=== PATIENT | female | born 1945 | race Caucasian/White ===

== ENCOUNTER 2017-04-15 12:11 | Day surgery (SDC) | payer BC ==
[2017-04-15] MEDS ORDERED: LIDOCAINE 1% 2 ML INJ ONE (13:13)
[2017-04-15] MEDS ORDERED: PROPOFOL/EMULSION 500 MG/50 ML BOTTLE IV ONE (14:18)
[2017-04-15] MEDS ORDERED: PROPOFOL 200 MG/20 ML VIAL ONE (14:59)
--- NOTE | 2017-04-15 21:03 | GPN ---
[f rep st] PROCEDURE NOTE PREPROCEDURE DIAGNOSIS: Nausea with a personal history of colon polyps. POSTPROCEDURE DIAGNOSES: 1. Gastritis. 2. Colon polyps status post removal. PROCEDURES: 1. EGD with biopsy. 2. Colonoscopy with snare. 3. Colonoscopy with biopsy. MEDICATIONS: Monitored anesthesia care. INDICATIONS: The patient is a 71-year-old female with a history of colon polyps as well as a recent development of nausea without vomiting. She was seen by Dr. Michael in our office who recommended up per endoscopy along with colonoscopy for polyp surveillance. The risks and benefits of the procedur e were discussed with the patient. Consent obtained. Risks include, but not limited to, bleeding, perforation, sedation. The patient is ASA class 2. DESCRIPTION OF PROCEDURE: The upper endoscope was advanced into the esophagus, into the stomach and second portion of the duodenum. The esophagus appears normal. The GE junction is located at 40 cm from the incisors. The Z-line is normal. There was no evidence of varices, esophagitis or Yoder 's. The stomach shows moderate diffuse gastritis associated with erythema, edema and adherent blood , worse in the gastric antrum. Biopsies were taken using cold biopsy forceps to evaluate for Helico bacter pylori. The duodenum and second portion is normal. Biopsies were taken using cold biopsy fo rceps to evaluate for celiac disease. The patient was then repositioned and the adult colonoscope was advanced into the terminal ileum, wh ich appeared normal. The ileocecal valve, the appendiceal orifice, cecum and ascending colon were n ormal. Along the hepatic flexure, there was a 1 cm semipedunculated polyp, which was removed using hot snare polypectomy technique. The transverse colon is normal. The splenic flexure is normal. T he descending colon shows an 8 mm semipedunculated polyp, which was removed using hot snare polypect judah. A few scattered diverticular were seen in the left colon. The sigmoid colon showed a 2 mm neha yp, which was removed using cold biopsy forceps and sent to pathology. Retroflexed views in the rec sujata were normal. Anorectal exam shows external hemorrhoids. IMPRESSION: 1. Moderate stomach gastritis status post biopsies for Helicobacter pylori. 2. Normal duodenum status post biopsies. 3. Three colon polyps, status post removal. The largest was 1 cm. Using hot snare and cold biopsy forceps. 4. Mild left-sided diverticulosis. 5. External hemorrhoids. RECOMMENDATIONS: 1. Discharge home with escort. 2. Advance diet as tolerated. 3. Follow up the final pathology results. Results are within 10 days. Repeat colonoscopy in 3 yea rs. 4. Consider trial of omeprazole 40 mg orally daily for 2 months. 5. Follow up with Dr. Michael in clinic as previously scheduled. Thank you for allowing me to participate in the care of your patient. Please do not hesitate to kala nix with questions. /[id number]/MODL
== END 2017-04-15 17:00 | disposition home health service (06) ==
LOC: FSGY 12:11
PROVIDERS: ATTEND Internal Medicine Gastroenterology
PROC: 0DB78ZX Excision of Stomach, Pylorus, Via Natural or Artificial Opening Endoscopic, Diagnostic (ICD-10-PCS; principal; 2017-04-15 14:00)
PROC: 0DBN4ZX Excision of Sigmoid Colon, Percutaneous Endoscopic Approach, Diagnostic (ICD-10-PCS; principal; 2017-04-15 14:00)
PROC: 0DBK4ZX Excision of Ascending Colon, Percutaneous Endoscopic Approach, Diagnostic (ICD-10-PCS; principal; 2017-04-15 14:00)
PROC: 0DBM4ZX Excision of Descending Colon, Percutaneous Endoscopic Approach, Diagnostic (ICD-10-PCS; principal; 2017-04-15 14:00)
PROC: 0DB98ZX Excision of Duodenum, Via Natural or Artificial Opening Endoscopic, Diagnostic (ICD-10-PCS; principal; 2017-04-15 14:00)
DX: K63.5 Polyp of colon (principal); K29.70 Gastritis, unspecified, without bleeding; R11.0 Nausea; K64.4 Residual hemorrhoidal skin tags; D64.9 Anemia, unspecified; R13.10 Dysphagia, unspecified; F41.9 Anxiety disorder, unspecified; M19.90 Unspecified osteoarthritis, unspecified site; F31.9 Bipolar disorder, unspecified; E03.9 Hypothyroidism, unspecified
CPT/HCPCS: J2704

== ENCOUNTER 2017-06-27 14:53 | Emergency (ER) | payer OTHER ==
[2017-06-27 15:02] VITALS: BP 176/96; PULSE 82; RESP 18; TEMP 98.2; O2SAT 96
--- NOTE | 2017-06-27 15:27 | EDPHY ---
H & P Stated Complaint: domestic issue at home/here for mental health eval/denies suicidality HPI/ROS: CHIEF COMPLAINT: Psychiatric evaluation HISTORY OF PRESENT ILLNESS: Patient is momentarily with reports of needing medical clearance. She comes from [facility] as she called them herself feeling anxious and concerned about her living scenario. She informed them that she does not want to live at home with her son and anymore she feels that there neglecting her. She is not suicidal. He is not depressed. She is not want to hurt anyone else either. She reports a history of bipolar disorder taking lithium and other medications. She says she has been compliant with this. She sees a psychiatrist and Dr. Beal. He is currently out of town until next week. She denies any other associated complaints or modifying factors. She was concerned this morning about her scenario so she contacted [facility]. They provided a cab stay facility. They evaluated her and then sent here for medical clearance. PSYCHIATRIC DIAGNOSES: Bipolar disorder PRIOR PSYCHIATRIC EVALUATIONS: Ongoing outpatient management M1/DETAINER: None REVIEW OF SYSTEMS: Ten systems reviewed and are negative unless otherwise noted in the HPI EXAMINATION General Appearance: Alert, no distress Head: normocephalic, atraumatic Eyes: Pupils equal and round, no conjunctival pallor or injection ENT, Mouth: Mucous membranes moist Neck: Normal inspection, supple, non-tender Respiratory: Lungs are clear to auscultation Cardiovascular: Regular rate and rhythm. No wheezing, rhonchi or crackles Gastrointestinal: Abdomen is soft and nontender Back: non-tender, no bony abnormalities Neurological: Alert to person, place. Disoriented to time. nonfocal, normal gait. Strength is symmetric in all 4 limbs. No pronator drift. Skin: Warm and dry, no rash Extremities: Nontender, no pedal edema Psychiatric: Anxious. Denies suicidal ideation. Denies homicidal ideation. DIFFERENTIAL DIAGNOSES: Including but not limited to encephalopathy, dementia, UTI, pneumonia, intracranial hemorrhage, bipolar disorder, sub china, china MDM: 3:20 p.m. Patient with bipolar disorder who is here wanting to change her home living scenario. She is here voluntarily. She is not suicidal or homicidal. She does appear to be intermittently altered. Potentially and a sub manic episode. I have ordered medical clearance laboratory studies as well as a CT of the head, chest x-ray and urinalysis to rule out the possibility of infection. She is resting comfortably in no acute distress. Detained or has been completed but not an M1 hold 3:55 p.m. I have discussed the case with the patient's spouse. He informs me that the patient is at baseline altered mental status as she has early dementia. He does not feel that she needs to be placed. He has an appointment for her on Saturday with her established psychiatrist Dr. Beal. He is traveling and thus unable to be here. He is returning home tomorrow. He provided the phone number of his adult son, Edward Schmid who is at home and willing to come chart picker the patient 4:10 I have discussed with the patient. She is declining going home with her son at this time. Complicating factors that she is altered. I have discussed with case management further assistance in this complicated scenario. 4:40 p.m. I discussed the case with Ely BLAKELY. She is providing assistance. She has visit with the patient the patient has agreed to go home with her son at this time. Patient was confused as she was told that she would have to be placed elsewhere when she was at [facility] earlier today. She has agreed to go with the son son has been contacted to come pick her up. She will be discharged home to his care. She remains calm and in no acute distress at this time. The spouse says arrange for an appoint with her psychiatrist on Saturday. The spouse will be home in the morning. I have confirmed this with the patient she agrees to go home with her son. SUPERVISION: Patient was evaluated in conjunction with the supervising physician. Please see their note for details. Source: Patient, RN/MD - Personal History Current Tetanus/Diphtheria Vaccine: Yes - Medical/Surgical History Hx Asthma: Yes Hx Chronic Respiratory Disease: No Hx Diabetes: No Hx Cardiac Disease: No Hx Renal Disease: No Hx Cirrhosis: No Hx Alcoholism: Yes Hx HIV/AIDS: No Hx Splenectomy or Spleen Trauma: No Other PMH: Hypothyroidism, chronic back and nerve pain, back surgery, left knee replacement bipolar/depression - Social History Smoking Status: Never smoked Constitutional: Initial Vital Signs Temperature (C) 98.2 F 06/27/17 14:59 Heart Rate 82 06/27/17 14:59 Respiratory Rate 18 06/27/17 14:59 Blood Pressure 176/96 H 06/27/17 14:59 O2 Sat (%) 96 06/27/17 14:59 O2 Delivery Mode Room Air Allergies/Adverse Reactions: Sulfa (Sulfonamide Antibiotics) Allergy (Verified 06/27/17 14:58) Hives Home Medications: Medication Instructions Recorded Docusate Sodium 04/11/17 Levothyroxine 04/11/17 [place] Carbonate ER 04/11/17 Lunesta 04/11/17 Probiotic 04/11/17 Propranolol HCl 04/11/17 Tylenol 04/11/17 traMADol 04/11/17 Medical Decision Making - Diagnostics Imaging Results: Imaging Impressions Chest X-Ray 06/27/17 15:27 Impression: No evidence for acute cardiopulmonary abnormality. - Data Points Laboratory Results: Laboratory Results 06/27/17 15:22 06/27/17 15:22 06/27/17 06/27/17 06/27/17 15:22 15:22 15:00 WBC 8.08 10^3/uL 10^3/uL (3.80-9.50) RBC 4.82 10^6/uL 10^6/uL (4.18-5.33) Hgb 14.2 g/dL g/dL (12.6-16.3) Hct 44.4 % % (38.0-47.0) MCV 92.1 fL fL (81.5-99.8) MCH 29.5 pg pg (27.9-34.1) MCHC 32.0 g/dL L g/dL (32.4-36.7) RDW 13.6 % % (11.5-15.2) Plt Count 320 10^3/uL 10^3/uL (150-400) MPV 9.2 fL fL (8.7-11.7) Neut % (Auto) 69.5 % % (39.3-74.2) Lymph % (Auto) 20.2 % % (15.0-45.0) Wilkinson % (Auto) 6.8 % % (4.5-13.0) Eos % (Auto) 2.8 % % (0.6-7.6) Baso % (Auto) 0.6 % % (0.3-1.7) Nucleat RBC Rel Count 0.0 % % (0.0-0.2) Absolute Neuts (auto) 5.61 10^3/uL 10^3/uL (1.70-6.50) Absolute Lymphs (auto) 1.63 10^3/uL 10^3/uL (1.00-3.00) Absolute Monos (auto) 0.55 10^3/uL 10^3/uL (0.30-0.80) Absolute Eos (auto) 0.23 10^3/uL 10^3/uL (0.03-0.40) Absolute Basos (auto) 0.05 10^3/uL 10^3/uL (0.02-0.10) Absolute Nucleated RBC 0.00 10^3/uL 10^3/uL (0-0.01) Immature Gran % 0.1 % % (0.0-1.1) Immature Gran # 0.01 10^3/uL 10^3/uL (0.00-0.10) Sodium 141 mEq/L mEq/L (134-144) Potassium 4.5 mEq/L mEq/L (3.5-5.2) Chloride 105 mEq/L mEq/L (97-110) Carbon Dioxide 26 mEq/l mEq/l (22-31) Anion Gap 10 mEq/L mEq/L (8-16) BUN 15 mg/dL mg/dL (7-23) Creatinine 0.6 mg/dL mg/dL (0.6-1.0) Estimated GFR > 60 Glucose 93 mg/dL mg/dL (70-100) Calcium 11.0 mg/dL H mg/dL (8.5-10.4) Phosphorus 3.5 mg/dL mg/dL (2.5-4.5) Salicylates < 1.0 mg/dL L mg/dL (2.0-20.0) Urine Opiates Screen NEGATIVE (NEGATIVE) Acetaminophen < 10 mcg/mL L mcg/mL (10.0-30.0) Urine Barbiturates NEGATIVE (NEGATIVE) Ur Phencyclidine Scrn NEGATIVE (NEGATIVE) Ur Amphetamine Screen NEGATIVE (NEGATIVE) U Benzodiazepines Scrn NEGATIVE (NEGATIVE) [place] 0.8 mEq/L mEq/L (0.6-1.2) Urine Cocaine Screen NEGATIVE (NEGATIVE) U Marijuana (THC) Screen NEGATIVE (NEGATIVE) Ethyl Alcohol < 10 mg/dL mg/dL (0-10) Departure - Departure Disposition: Home, Routine, Self-Care Clinical Impression: Bipolar 1 disorder Altered mental status Qualifiers: Altered mental status type: unspecified Qualified Code(s): R41.82 - Altered mental status, unspecified Condition: Good
[2017-06-27 15:28] LABS: % IMMATURE GRANULYOCYTES 0.1 % (0.0-1.1); ABSOLUTE IMMATURE GRANULOCYTES 0.01 10^3/uL (0.00-0.10); ADD DIFF? NO; ADD MORPH? NO; ADD SCAN? NO; ATYPICAL LYMPHOCYTE FLAG 0 (0-99); FRAGMENT RBC FLAG 0 (0-99); HEMATOCRIT 44.4 % (38.0-47.0); HEMOGLOBIN 14.2 g/dL (12.6-16.3); LEFT SHIFT FLG 0 (0-99); LIPEMIA HEMOLYSIS FLAG 80 (0-99); MEAN CELL HEMOGLOBIN 29.5 pg (27.9-34.1); MEAN CELL VOLUME 92.1 fL (81.5-99.8); MEAN PLATELET VOLUME 9.2 fL (8.7-11.7); PLATELET CLUMPS FLAG 0 (0-99); PLATELET COUNT 320 10^3/uL (150-400); RED BLOOD CELL COUNT 4.82 10^6/uL (4.18-5.33); RED CELL DISTRIBUTION WIDTH 13.6 % (11.5-15.2)
[2017-06-27 15:42] LABS: ANION GAP 10 mEq/L (8-16); CARBON DIOXIDE 26 mEq/l (22-31); CHLORIDE 105 mEq/L (97-110); CREATININE 0.6 mg/dL (0.6-1.0); ETHANOL SERUM < 10 mg/dL (0-10); GLOMERULAR FILTRATION RATE > 60; GLUCOSE 93 mg/dL (70-100); LITHIUM 0.8 mEq/L (0.6-1.2); POTASSIUM 4.5 mEq/L (3.5-5.2); SALICYLATE < 1.0 mg/dL (2.0-20.0); SODIUM 141 mEq/L (134-144)
--- NOTE | 2017-06-27 15:48 | CPEKG ---
Heart Rate: 68 RR Interval: 882 P-R Interval: 176 QRSD Interval: 88 QT Interval: 428 QTC Interval: 456 P [place]: 64 QRS [place]: -19 T Wave [place]: 43 EKG Severity - ABNORMAL ECG - EKG Impression: SINUS RHYTHM EKG Impression: CONSIDER LEFT VENTRICULAR HYPERTROPHY Electronically Signed By: Chris Estrada 27-Jun-2017 15:55:47
[2017-06-27] MEDS ORDERED: LORazepam 0.5 MG TAB PO ONE (17:20)
== END 2017-06-27 17:35 | disposition home or self-care (01) ==
DX: F31.9 Bipolar disorder, unspecified (principal); R41.82 Altered mental status, unspecified
CPT/HCPCS: 80305; G0480

== ENCOUNTER → 2017-09-21 | Outpatient (CLI) | payer OTHER | LOC: BMCIMAGING 10:08 | PROVIDERS: ATTEND Family Medicine | DX: M51.36 Other intervertebral disc degeneration, lumbar region (principal); M43.16 Spondylolisthesis, lumbar region; M41.86 Other forms of scoliosis, lumbar region; M16.12 Unilateral primary osteoarthritis, left hip ==